=== PATIENT | female | born 1955 | race Caucasian/White ===

== ENCOUNTER 2019-10-10 08:22 | Outpatient (CLI) | payer MEDICARE, SELFPAY ==
--- NOTE | ~2019-10-10 | MM_ITS ---
EXAMINATION: MM screening price BI w darby HISTORY: Screening mammogram TECHNIQUE: Craniocaudal and mediolateral oblique 3-D tomosynthesis images were obtained and synthetic 2-D images were generated. CAD analysis was submitted and interpreted. COMPARISON: No prior mammogram is available for comparison at this institution. BREAST PARENCHYMAL COMPOSITION: The breasts are heterogeneously dense, which may obscure small masses . FINDINGS: Occasional benign calcifications. There is no evidence of suspicious mass, calcification, o r architectural distortion to suggest malignancy in either breast. There has been no suspicious inter mehnaz change. IMPRESSION: 1. No mammographic evidence of malignancy. 2. Recommend routine screening mammography in one year. BI-RADS Category 2: Benign finding(s). Reviewed, dictated and finalized at location A. RENTAL CLERK
--- NOTE | ~2019-10-10 | DEXA_ITS ---
Bone Density Report Name: Génesis Foley Age: 64 Sex: Female Ethnicity: White Date of : 1955 Indication: postmenopausal; prior fracture; hysterectomy; Referring Provider: SOPHIA, KENNA Santillan Study: Bone densitometry was performed. Exam Date: October 10, 2019 Accession number: [id number] Bone Density: Region BMD T-score Z-score Classification AP Spine (L1-L4) 0.743 -2.8 -0.9 Osteoporosis Femoral Neck (Left) 0.583 -2.4 -0.8 Osteopenia Total Hip (Left) 0.707 -1.9 -0.6 Osteopenia Total Hip Bilateral Avg 0.719 -1.8 -0.5 Osteopenia Femoral Neck (Right) 0.556 -2.6 -1.0 Osteoporosis Total Hip (Right) 0.730 -1.7 -0.4 Osteopenia World Health Organization criteria for BMD impression classify patients as: Normal (T-score at or above -1.0), Osteopenia (T-score between -1.0 and -2.5), or Osteoporosis (T-score at or below -2.5). 10-year Fracture Risk: FRAX not reported because: Some T-score for Spine Total or Hip Total or Femoral Neck at or below -2.5 Clinical Information Provided by Patient: Has had a low trauma fracture Has used the following medications: Vitamin D, Calcium Has the following medical conditions: Hysterectomy Patient maximum height was 64 Menopause Age: 48 No regular weight bearing exercise Does not regularly consume dairy products Drinks caffeinated beverages Onset of menses at age 13 Number of children 3 Impression: The patient has established osteoporosis, based on the Total Spine T-score and the existence of a prior fracture. The patient has risk factors, including: previous fracture. Discussion: HIGH RISK OF FRACTURE. BONE DENSITY IS UNDESIRABLY LOW AT ONE OR MORE SKELETAL SITES, CONSISTENT WITH POSTMENOPAUSAL OSTEOPOROSIS. This patient's lowest T-score, in a patient who has previously fractured, meets the World Health Organization's (WHO) criteria for severe osteoporosis. In untreated patients, the risk of osteoporotic fracture increases approximately two-fold for each 1.0 SD decrease in T-score. Low bone density is not the only risk factor for fracture; also consider factors such as patient's age, frailty or poor health, risk of falling, risk of injury, previous osteoporotic fracture, family history of osteoporosis, cigarette smoking, low body weight, etc. Not everyone with low bone mineral density has osteoporosis; osteomalacia and other metabolic bone disorders should also be considered. Patients who have osteoporosis should be evaluated for specific diseases and conditions (secondary causes) that may cause or contribute to bone loss. The [place] [employer] Endocrinologists (AACE) and National Osteoporosis Foundation (NOF) recommend pharmacologic intervention for all postmenopausal women whose T-score is in this range. The patient should follow a healthful lifestyle (good nutrition with adequa
== END 2019-10-10 08:23 | disposition home or self-care (01) ==
PROVIDERS: PCP Nurse Practitioner Family; Visit Provider Family Medicine
DX: Z12.31 Encounter for screening mammogram for malignant neoplasm of breast (principal); Z78.0 Asymptomatic menopausal state; M85.89 Other specified disorders of bone density and structure, multiple sites; M81.0 Age-related osteoporosis without current pathological fracture
CPT/HCPCS: 77063; 77067; 77080

== ENCOUNTER 2019-10-17 10:30 | Outpatient (CLI) | payer MEDICARE, SELFPAY ==
--- NOTE | ~2019-10-17 | PE_ITS ---
EXAMINATION: PET skull to mid thigh DATE: 10/17/2019 13:01 INDICATION: Abnormal lung CT TECHNIQUE: Blood glucose level was 84 mg/dL. 11.263 mCi of 18-fluorodeoxyglucose (18-FDG) was adminis tered i.v. Low dose computed tomography (CT) images were acquired from the base of the brain to the p roximal thighs for attenuation correction and anatomic localization. Positron emission tomography (PE T) images were acquired in the same distribution beginning 70 minutes after injection. Images includi ng fused PET/CT images were reconstructed in axial, coronal, and sagittal planes. Automated exposure control technique was employed. The dose-length product was 289.35mGy-cm. COMPARISON: No prior CT imaging of the chest for comparison. FINDINGS: Head/neck: There is symmetric increased activity in the oral cavity, palatine tonsils, parotid glands, submandi bular glands, thyroid gland, laryngeal muscles and ocular muscles without CT correlate, likely physio logic. No pathologically enlarged cervical lymphadenopathy or suspicious foci of increased FDG uptake in the visualized head or neck. Chest: Evaluation of fine pulmonary parenchymal detail is limited by respiratory motion. Mild emphysema with mild biapical pleural-parenchymal scarring. Approximately 9 mm groundglass nodule at the medial supe rior segment of the right lower lobe with no discernible FDG activity with maximal SUV of 0.9. There are small calcified nodules in the right upper and bilateral lower lobes along with calcified bilater al hilar and mediastinal lymph nodes consistent with old granulomatous disease. Heart size is normal. Atherosclerotic coronary artery calcifications. No pericardial or pleural effusion. No pathologicall y enlarged or abnormally FDG avid thoracic lymphadenopathy. Abdomen/pelvis/proximal thighs: Physiologic renal accumulation and excretion of FDG activity in the kidneys, bladder and along portio ns of ureters. Normal degree and heterogenous pattern of increased uptake throughout the liver withou t radiologic correlate or dominant FDG avid lesion. The gallbladder, pancreas, spleen and bilateral a drenal glands are normal. 3.4 x 2.2 cm left adnexal cyst. Mild uptake scattered throughout the bowels without radiologic correlate, also likely physiologic. There is calcified atherosclerosis of the aor ta and many of the other arteries. Stenting at the left common and left external iliac artery and at the right external iliac artery. Mild uptake overlying the bilateral greater trochanters consistent w ith trochanteric bursitis. No other abnormal foci of increased FDG uptake or pathologically enlarged lymphadenopathy in the abdomen, pelvis or proximal thighs. Musculoskeletal: No suspicious lytic, blastic or FDG avid bone lesions. IMPRESSION: 1. Subtle FDG uptake associated with a 9 mm groundglass nodule in the superior segment of the right l ower lobe. This could be either infectious/inflammatory in etiology or related to low-grade malignanc y. Would base the decision on possible biopsy on whether there has been definitive increase in size o f the lesion as a whole or of a solid component of the lesion on chest CT. The report from prior outs mario imaging suggests there may be increase in size of a solid component however the imaging is unavai lable in order to render an opinion. If there has been no definitive increase in size on the prior ou tside imaging, would recommend continued follow-up with noncontrast chest CT in 6 months. Reviewed, dictated and finalized at location A. LE MEAT CUTTER IMPRESSION: 1. Subtle FDG uptake associated with a 9 mm groundglass nodule in the superior segment of the right lower lobe. This could be either infectious/inflammatory i n etiology or related to low-grade malignancy. Would base th
[2019-10-17 10:50] LABS: Glucose Point of Care 84 (65-105)
== END 2019-10-17 10:31 | disposition home or self-care (01) ==
LOC: ANHIMG 10:32
PROVIDERS: PCP Family Medicine; Visit Provider Family Medicine
DX: R91.8 Other nonspecific abnormal finding of lung field (principal)
CPT/HCPCS: 78815; A9552

== ENCOUNTER 2020-11-11 10:26 | Outpatient (CLI) | payer MEDICARE, SELFPAY | END 2020-11-11 10:27 | disposition home or self-care (01) | LOC: ANHCOVIDVC 10:26 | PROVIDERS: PCP Family Medicine | DX: Z23 Encounter for immunization (principal) | CPT/HCPCS: 0001A; 91300 ==

== ENCOUNTER 2020-12-02 10:03 | Outpatient (CLI) | payer MEDICARE, SELFPAY | END 2020-12-02 10:04 | disposition home or self-care (01) | LOC: ANHCOVIDVC 10:03 | PROVIDERS: PCP Family Medicine | DX: Z23 Encounter for immunization (principal) | CPT/HCPCS: 0002A; 91300 ==

== ENCOUNTER 2022-07-06 15:11 | Outpatient (CLI) | payer MEDICARE, SELFPAY ==
--- NOTE | ~2022-07-06 | MM_ITS ---
EXAMINATION: MM screening price BI w darby HISTORY: Screening mammogram TECHNIQUE: Craniocaudal and mediolateral oblique 3-D tomosynthesis images were obtained and synthetic 2-D images were generated. CAD analysis was submitted and interpreted. COMPARISON: bilateral screening mammogram BREAST PARENCHYMAL COMPOSITION: The breasts are heterogeneously dense, which may obscure small masses . FINDINGS: Stable bilateral benign-appearing calcifications are noted including some calcified microhe matomas and arterial calcifications. There is no evidence of suspicious mass, calcification, or archi tectural distortion to suggest malignancy in either breast. There has been no suspicious interval pily nge. IMPRESSION: 1. No mammographic evidence of malignancy. 2. Recommend routine screening mammography in one year. BI-RADS Category 2: Benign finding(s). Reviewed, dictated and finalized at location A. [facility] [employer]
== END 2022-07-06 15:12 | disposition home or self-care (01) ==
LOC: ANHIMG 15:12
PROVIDERS: PCP Family Medicine; Visit Provider Physician Assistant
DX: Z12.31 Encounter for screening mammogram for malignant neoplasm of breast (principal)
CPT/HCPCS: 77063; 77067

== ENCOUNTER 2022-11-05 12:54 | Outpatient (CLI) | payer MEDICARE, SELFPAY ==
--- NOTE | ~2022-11-05 | DEXA_ITS ---
Bone Density Report Name: NATASHA GALLARDO Age: 67 Sex: Female Ethnicity: White Date of : 1955 Indication: postmenopausal osteoporosis; monitoring treatment; height loss; prior fracture; cancer; asthma or emphysema; hysterectomy; Referring Provider: SOPHIA, KENNA Santillan Study: Bone densitometry was performed. Exam Date: November 05, 2022 Accession number: [id number] Bone Density: Region BMD T-score Z-score Classification AP Spine(L1-L4) 0.752 -2.7 -0.6 Osteoporosis Femoral Neck (Left) 0.552 -2.7 -0.9 Osteoporosis Total Hip (Left) 0.631 -2.6 -1.1 Osteoporosis Femoral Neck (Right) 0.561 -2.6 -0.8 Osteoporosis Total Hip (Right) 0.670 -2.2 -0.7 Osteopenia Total Hip Mean 0.650 -2.4 -0.9 Osteopenia World Health Organization criteria for BMD impression classify patients as: Normal (T-score at or above -1.0), Osteopenia (T-score between -1.0 and -2.5), or Osteoporosis (T-score at or below -2.5). 10-year Fracture Risk: FRAX not reported because: Some T-score for Spine Total or Hip Total or Femoral Neck at or below -2.5 Treated for osteoporosis Previous Exams: Region Exam Age BMD T-score BMD Change BMD Change Date g/cm2 vs Baseline vs Previous AP Spine (L1-L4) 11/05/2022 67 0.752 -2.7 0.008 (1.1%) 0.008 (1.1%) 10/10/2019 64 0.743 -2.8 Total Hip(Left) 11/05/2022 67 0.631 -2.6 -0.076 (-10.8% -0.076 (-10.8% 10/10/2019 64 0.707 -1.9 Total Hip(Right) 11/05/2022 67 0.670 -2.2 -0.060 (-8.2%) -0.060 (-8.2%) 10/10/2019 64 0.730 -1.7 *Denotes significance at 95% confidence level, LSC for AP Spine = 0.022 g/cm2, LSC for Total Hip = 0.027 g/cm2 Clinical Information Provided by Patient: Has had a low trauma fracture Is being treated for osteoporosis Has used the following medications: Fosamax (i.e. alendronate), Vitamin D, Calcium Has the following medical conditions: Asthma or Emphysema, Cancer, Hysterectomy Patient maximum height was 65 Menopause Age: 30 No regular weight bearing exercise Does not regularly consume dairy products Onset of menses at age 14 Number of children 3 Impression: The patient has established osteoporosis, based on the Total Spine T-score and the existence of a prior fracture. The patient has risk factors, including: previous fracture. The BMD for the Total Hip(Left) decreased, changing by -10.8% since the last DXA exam. The BMD for the Total Hip(Right) decreased, changing by -8.2% since the last DXA
== END 2022-11-05 12:55 | disposition home or self-care (01) ==
PROVIDERS: PCP Family Medicine; Visit Provider Family Medicine
DX: Z78.0 Asymptomatic menopausal state (principal); M85.89 Other specified disorders of bone density and structure, multiple sites; M81.0 Age-related osteoporosis without current pathological fracture
CPT/HCPCS: 77080

== ENCOUNTER 2023-05-29 11:15 | Emergency (ER) | payer MEDICARE, SELFPAY ==
--- NOTE | ~2023-05-29 | XR_ITS ---
EXAMINATION: XR chest 2V DATE: 05/29/2023 11:45 INDICATION: Cough and congestion, history of partial pneumonectomy TECHNIQUE: Frontal and lateral views of the chest are obtained COMPARISON: 01/26/2004 FINDINGS: Subtle airspace opacity is present in the right midlung zone. There is volume loss in the r ight upper thorax with surgical clips noted at the upper right hilum, consistent with partial pneumon ectomy. No pleural effusion or pneumothorax. The cardiomediastinal silhouette is normal. There is mil d thoracic spondylosis. IMPRESSION: 1. Subtle airspace opacity of the right midlung zone which could be infectious or inflammatory howeve r, follow-up chest radiograph after appropriate therapy is recommended. Reviewed, dictated and finalized at location F. IMPRESSION: 1. Subtle airspace opacity of the right midlung zone which could be infectious or inflammatory however, follow-up chest radiograph after appropriate therapy i s recommended.
[2023-05-29 11:22] VITALS: BP 161/88; PULSE 84; RESP 20; TEMP 37.1; O2SAT 100
--- NOTE | 2023-05-29 11:33 | ED.URI ---
HPI - URI/Sore Throat General Chief Complaint: Upper Respiratory Infection Stated Complaint: Cough/Chest Congestion Source: patient Mode of arrival: ambulatory Limitations: no limitations History of Present Illness HPI Narrative: 68 y/o female with hx lung ca (s/p RUL partial lobectomy) presented for c/o productive cough for 3 days and sore throat. States she had temp up to 100.9 today. Throat pain worsening. Cough is productive of yellow/green sputum. Denies sob, wheezing, n/v/d, fatigue or lethargy. Not taking anything for symptoms. 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 Related Data Home Medications Medication Instructions Recorded Confirmed alendronate 70 mg tablet 70 mg PO DAILY 05/29/23 05/29/23 amlodipine 5 mg tablet 5 mg PO BID 05/29/23 05/29/23 atorvastatin 40 mg tablet 40 mg PO DAILY 05/29/23 05/29/23 clopidogrel 75 mg tablet 75 mg PO DAILY 05/29/23 05/29/23 gabapentin 300 mg capsule 300 mg PO DAILY 05/29/23 05/29/23 levothyroxine 75 mcg tablet 75 mcg PO DAILY 05/29/23 05/29/23 losartan 100 mg tablet 100 mg PO DAILY 05/29/23 05/29/23 paroxetine HCl 20 mg tablet 20 mg PO DAILY 05/29/23 05/29/23 tramadol 50 mg tablet 50 mg PO TID 05/29/23 05/29/23 Allergies Allergy/AdvReac Type Severity Reaction Status Date / Time wasp Allergy Anaphylaxis Uncoded 05/29/23 12:10 Review of Systems Review of Systems: CONSTITUTIONAL: Denies body aches, fever, chills, or sweats. EYES: Denies visual changes, redness, or discharge. ENT: reports sore throat Denies rhinorrhea, congestion, or otalgia. CARDIOVASCULAR: Denies chest pain, palpitations, or edema. RESPIRATORY: Reports cough, deniessob, wheezing. GASTROINTESTINAL: Denies abdominal pain, nausea, vomiting, or diarrhea. GENITOURINARY: Denies dysuria or hematuria. SKIN: Denies rash, itching, or wounds. MUSCULOSKELETAL: Denies back pain, joint pain, or myalgia. NEUROLOGIC: Denies headache, numbness, tingling, or weakness. All systems reviewed & are unremarkable except as noted in HPI and below PMFSH Past Medical History Medical History (Updated 05/29/23 @ 12:10 by Lisette Wells APRN) HTN (hypertension) Hypothyroid Lung cancer PAD (peripheral artery disease) Surgical History Surgical History (Updated 05/29/23 @ 11:53 by Lisette Wells APRN) History of angioplasty of peripheral vessel Social History Social History (Updated 05/29/23 @ 11:53 by Lisette Wells APRN) Smoking status: Former smoker Comments At time of signature, I have reviewed and agree with nursing past medical, surgical, social and family history unless otherwise noted. Please see nursing chart for further information. There is no relevant family history pertinent to the presenting complaint Exam Narrative: GENERAL: Well-appearing, in no acute distress. EYES: EOMI. No redness or drainage. Conjunctivae normal. ENT: Mucous membranes pink and moist. No rhinorrhea. TMs normal bilaterally. Throat erythematous without exudate. Uvula midline. NECK: Normal AROM. Supple. CHEST: No respiratory distress. Frequent moist cough. LCTAB HEART: Regular rate and rhythm. No murmur appreciated. ABDOMEN: Soft, nontender, nondistended, normal active bowel sounds. EXTREMITIES: Normal range of motion. No edema. SKIN: Warm, dry, no rash. Capillary refill normal. Normal skin turgor. NEURO: Alert and oriented x3. Gait steady. PSYCH: Normal affect. Course Course Emergency Course: Patient is aware of diagnosis, understands and agrees to treatment plan. Anticipatory guidance given. Patient agrees to follow-up as directed and is aware of reasons to seek care at the emergency department. Portions of this record may have been created with voice recognition software Level of Care: Express Care Visit Vital Signs Vital signs: Vital Signs Temperature 98.8 F 05/29/23 11:22 Pulse Rate 84 05/29/23 11:22 Respiratory Rate 20 05/29/23 11:22 Blood Pressure 161/88 H 05/29
[2023-05-29 11:43] VITALS: BP 161/88; PULSE 84; RESP 20; TEMP 37.1; O2SAT 100
== END 2023-05-29 12:15 | disposition home or self-care (01) ==
PROVIDERS: Emergency Provider Nurse Practitioner Family; PCP Family Medicine
DX: J22 Unspecified acute lower respiratory infection (principal); I10 Essential (primary) hypertension; E03.9 Hypothyroidism, unspecified; Z79.899 Other long term (current) drug therapy; Z79.891 Long term (current) use of opiate analgesic; Z85.118 Personal history of other malignant neoplasm of bronchus and lung; Z20.822 Contact with and (suspected) exposure to COVID-19
CPT/HCPCS: 71046; 87081; 87426; 87880; 99213; C9803; G0463

== ENCOUNTER 2024-04-10 13:54 | Outpatient (CLI) | payer MEDICARE, SELFPAY ==
--- NOTE | ~2024-04-10 | MM_ITS ---
EXAMINATION: MM screening price BI w darby HISTORY: Screening TECHNIQUE: Craniocaudal and mediolateral oblique 3-D tomosynthesis images were obtained and synthetic 2-D images were generated. CAD analysis was submitted and interpreted. COMPARISON: Comparison to multiple prior studies sequentially, with oldest reviewed study dated 10/10. BREAST PARENCHYMAL COMPOSITION: There are scattered areas of fibroglandular density. FINDINGS: There is no evidence of suspicious mass, calcification, or architectural distortion to sugg est malignancy in either breast. There has been no suspicious interval change. IMPRESSION: 1. No mammographic evidence of malignancy. 2. Recommend routine screening mammography in one year. BI-RADS Category 1: Negative Reviewed, dictated and finalized at location B.
== END 2024-04-10 13:55 | disposition home or self-care (01) ==
LOC: ANHIMG 13:56
PROVIDERS: PCP Family Medicine; Visit Provider Family Medicine
DX: Z12.31 Encounter for screening mammogram for malignant neoplasm of breast (principal)
CPT/HCPCS: 77063; 77067

== ENCOUNTER 2025-04-24 14:43 | Outpatient (CLI) | payer MEDICARE, SELFPAY ==
--- NOTE | ~2025-04-24 | MM_ITS ---
EXAMINATION: MM screening [facility] BI w darby HISTORY: Screening TECHNIQUE: Craniocaudal and mediolateral oblique 3-D tomosynthesis images were obtained and synthetic 2-D images were generated. CAD analysis was submitted and interpreted. COMPARISON: Comparison to multiple prior studies sequentially, with oldest reviewed study dated 10/10/2019. BREAST PARENCHYMAL COMPOSITION: There are scattered areas of fibroglandular density. FINDINGS: There is no evidence of suspicious mass, calcification, or architectural distortion to suggest malignancy in either breast. Scattered benign-appearing calcifications are present. IMPRESSION: 1. No mammographic evidence of malignancy. 2. Recommend routine screening mammography in one year. BI-RADS Category 2: Benign finding(s). Reviewed, dictated and finalized at location B.
--- OUTSIDE RECORDS SUMMARY | 2025-04-24 14:47 | XMS_ITS | Clinical Summary ---
Author Organization [facility] Address [address] [place] [address] Phone Care Team Providers Care Tank Refinisher Name Role Phone Dayana Ruelas MD Primary Care Provider + Allergies No known active allergies Medications amLODIPine (NORVASC) 5 MG Tablet TAKE 1 TABLET BY MOUTH EVERY DAY. 30 Tab 11 07/17/2015 Active ibuprofen (MOTRIN) 800 MG Tablet TAKE ONE TABLET BY MOUTH EVERY 6 HOURS NEEDED 90 Tab 3 07/17/2015 Active levothyroxine (SYNTHROID) 50 MCG Tablet TAKE 1 TABLET BY MOUTH DAILY 30 Tab 5 08/22/2015 Active sertraline (ZOLOFT) 100 MG Tablet Take 100 mg by mouth daily. Active promethazine-de xtromethorphan (PROMETHAZINE-D M) 6.25-15 MG/5ML Syrup Take 5 mL by mouth every 4 hours as needed for Cough. 240 mL 1 09/17/2015 Active fluticasone (FLONASE) 50 MCG/ACT Suspension USE 2 SPRAY(S) EACH NOSTRIL DAILY 16 g 3 05/27/2016 Active VALSARTAN PO Take by mouth. Active predniSONE (DELTASONE) 10 MG Tablet TAKE 4 TABLETS DAILY X2 DAYS THEN 3 TABLETS DAILY X2 DAYS THEN 2 TABLETS DAILY X2 DAYS THEN 1 TABLET DAILY X2 DAYS 20 Tab 12/07/2019 Active hydrOXYzine (VISTARIL) 25 MG Capsule Take 1 Cap by mouth 3 times daily as needed for Itching. 20 Cap 12/06/2019 Active Active Problems No known active problems Immunizations Immunization Administration Dates Next Due Pneumococcal Vaccine Adult - 23 Valent 7 TDAP Vaccine 06/22/2014 Family History Medical History Relation Name Comments Heart Attack Father Relation Name Status Comments Father Social History Tobacco Use Types Packs/Day Years Used Date Smoking Tobacco: Former Cigarettes Q uit: 06/06/2019 Smokeless Tobacco: Never Tobacco Cessation:Ready to Q uit: No; Counseling Given: Yes Alcohol Use Standard Drinks/Week Comments No 0 (1 standard drink = 0.6 oz pur e alcohol) Comments No Sex and Gender Information Value Date Recorded Sex Assigned at Not on file Legal Sex Female 7:44 PM CDT Gender Identity Not on file Sexual Orientation Not on file Last Filed Vital Signs Vital Sign Reading Time Taken Comments Blood Pressure 189/94 12/06/2019 9:50 AM CDT Pulse 87 12/06/2019 9:48 AM CDT Temperature 37.3 C (99.1 F) 12/06/2019 9:48 AM CDT Respiratory Rate 18 12/06/2019 9:48 AM CDT Oxygen Saturation 97% 12/06/2019 9:48 AM CDT Inhaled Oxygen Concentration - - Weight 59 kg (130 lb) 12/06/2019 9:47 AM CDT Height 162.6 cm (5' 4) 12/06/2019 9:47 AM CDT Body Mass Index 22.31 12/06/2019 9:47 AM CDT Plan of Treatment Health Maintenance Due Date Last Done Comments Hepatitis C Virus (HCV) Screening 1955 Cologuard 1998 Colonoscopy 1998 Colorectal Cancer Screening 1998 Immunochemical Fecal Occult Blood 1998 Zoster Immunization (1 of 2) 2003 Pneumococcal Immunization (5 0+ years) (2 of 2 - PCV) 11/29/2007 11/28/2006 SARS-COV-2 Immunization ( season) 2024 08/08/2021, 12/02/2020, 11/11/2020 Td Immunization Every 10 Yea rs (Adults With 1 Tdap) 06/22/2024 06/22/2014 Influenza Immunization (#1) 2025 Respiratory Syncytial Virus (RSV) Immunization (Adult) (1 - 1-dose 75+ series) 02/17/2028 Pneumococcal Immunization Combined Discontinued 11/28/2006 Hepatitis B Immunization Aged Out No longer eligible based on patient's age to complete this topic Human Papillomavirus (HPV) Immunization Aged Out No longer eligible based on patient's age to complete this topic Meningococcal Immunization (ACWY) Aged Out No longer eligible based on patient's age to complete this topic Rotavirus Immunization Aged Out No lo nger eligible based on patient's age to complete this [place] [id number] [facility] Care Teams Tank Refinisher Relationship Specialty Start Date End Date Dayana Ruelas MD [address] [place] [id number] PCP - General Family Medicine 12/06/19
== END 2025-04-24 14:44 | disposition home or self-care (01) ==
LOC: ANHFOHIMG 14:44
PROVIDERS: PCP Nurse Practitioner Family; Visit Provider Nurse Practitioner Family
DX: Z12.31 Encounter for screening mammogram for malignant neoplasm of breast (principal)
CPT/HCPCS: 77063; 77067